=== PATIENT | female | born 1995 | race Caucasian/White ===

== ENCOUNTER 2017-09-19 15:50 | Emergency (ER) | payer OTHER ==
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
[2017-09-19 16:10] VITALS: TEMP 97; BMI 21.9
[2017-09-19 16:41] LABS: HCG,QUALITATIVE URINE NEGATIVE; URINE APPEARANCE CLOUDY; URINE BILIRUBIN NEGATIVE (NEGATIVE); URINE BLOOD NEGATIVE (NEGATIVE); URINE COLOR AMBER; URINE GLUCOSE (UA) NEGATIVE (NEGATIVE); URINE KETONE 1+ (NEGATIVE); URINE LEUK ESTERASE 2+ (NEGATIVE); URINE NITRITE NEGATIVE (NEGATIVE); URINE PROTEIN 2+ (NEGATIVE)
[2017-09-19 16:47] LABS: EPI CELLS MANY /HPF (FEW); URINE HYALINE CAST 13 /lpf; URINE MUCUS MANY
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
[2017-09-19] MEDS ORDERED: ACETAMINOPHEN 1000 MG/100 ML VIAL (NON FORMULARY) IVPB ONE (16:59)
[2017-09-19] MEDS ORDERED: ACETAMINOPHEN INJECTION 100 ML IVPB ONE (17:45)
[2017-09-19 18:02] LABS: BASO % 0.2 % (0-2.0); EOS % 0.1 % (0-4.5); HEMATOCRIT 41.3 % (32.4-45.2); LYMPH % 13.5 % (8-40); MCH 31.3 pg (25.7-33.7); MCHC 33.8 g/dl (32.0-36.0); MEAN CELL VOLUME 92.4 fl (80-96); MEAN PLT VOLUME 10.7 fl (7.5-11.1); MONO % 4.2 % (3.8-10.2); PLATELET COUNT 189 K/MM3 (134-434); RBC 4.47 M/mm3 (3.60-5.2); RDW 14.1 % (11.6-15.6); WHITE BLOOD COUNT 9.6 K/mm3 (4.0-10.0)
[2017-09-19 18:26] LABS: INR 1.11 (0.82-1.09); PROTHROMBIN TIME (PATIENT) 12.5 SEC (9.98-11.88)
[2017-09-19 18:30] LABS: ALBUMIN 4.3 g/dl (3.4-5.0); ANION GAP 10 (8-16); BLOOD UREA NITROGEN 10 mg/dL (7-18); CALCIUM 9.3 mg/dL (8.5-10.1); CHLORIDE 104 mmol/L (98-107); CO2 26 mmol/L (21-32); CREATININE 0.8 mg/dL (0.55-1.02); GLUCOSE,RANDOM 84 mg/dL (74-106); SGOT/AST 13 U/L (15-37); SGPT/ALT 12 U/L (12-78); SODIUM 140 mmol/L (136-145)
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
[2017-09-19 18:31] LABS: ALK PHOS 49 U/L (45-117); BILIRUBIN,TOTAL 0.7 mg/dL (0.2-1.0); TOT PROT 7.4 g/dl (6.4-8.2)
[2017-09-19 19:39] VITALS: BP 113/70; PULSE 89
[2017-09-19] MEDS ORDERED: CEPHALEXIN MONOHYDRATE 500 MG CAPSULE (UD) PO ONE (19:59)
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
[2017-09-19] MEDS ORDERED: CEPHALEXIN MONOHYDRATE 250 MG CAPSULE (FP) ONE ×2 (20:10→20:11)
[2017-09-19] MEDS ORDERED: NAPROXEN 500 MG TABLET (FP) ONE (20:10)
[2017-09-19] MEDS ORDERED: CYCLOBENZAPRINE HCL 10 MG TABLET (FP) ONE (20:12)
[2017-09-19] MEDS ORDERED: NAPROXEN 500 MG TABLET (FP) PO ONE (20:14)
[2017-09-19] MEDS ORDERED: CYCLOBENZAPRINE HCL 10 MG TABLET (FP) PO ONE (20:15)
== END 2017-09-19 20:25 | disposition home or self-care (01) ==
LOC: JER 15:50
PROC: 3E033NZ Introduction of Analgesics, Hypnotics, Sedatives into Peripheral Vein, Percutaneous Approach (ICD-10-PCS; principal; 2017-09-19)
DX: S20.229A Contusion of unspecified back wall of thorax, initial encounter (principal); Y04.2XXA Assault by strike against or bumped into by another person, initial encounter; Y93.89 Activity, other specified; Y92.414 Local residential or business street as the place of occurrence of the external cause; Y99.8 Other external cause status; Y07.50 Unspecified non-family member, perpetrator of maltreatment and neglect
CPT/HCPCS: 36415; 74178-TC; 80053; 81003; 81015; 84703; 85025; 85610; 86850; 86900; 86901; 99282-25